=== PATIENT | male | born 1955 | race Caucasian/White ===

== ENCOUNTER 2020-12-30 15:13 | Emergency (ER) | payer MEDICARE, OTHER ==
[~2020-12-30] VITALS: Ht 172.7 cm; Wt 109.1 kg
[2020-12-30 17:02] VITALS: BP 112/70
[2020-12-30] MEDS ORDERED: RIVA10 PO (18:04)
[2020-12-30] MEDS ORDERED: APIX2.5T PO (18:04)
[2020-12-30] MEDS ORDERED: PANT40TA54 PO (18:04)
[2020-12-30] MEDS ORDERED: BUME2TAB5 PO (18:04)
[2020-12-30] MEDS ORDERED: METO-408 PO (18:04)
[2020-12-30] MEDS ORDERED: ASPI-1198 PO (18:04)
[2020-12-30] MEDS ORDERED: CARV3.1231 PO (18:04)
[2020-12-30] MEDS ORDERED: POTA-92 PO (18:04)
[2020-12-30] MEDS ORDERED: BUDE10.2 IH (18:04)
[2020-12-30] MEDS ORDERED: SPIR25 PO (18:04)
[2020-12-30] MEDS ORDERED: FOLI-130 PO (18:04)
[2020-12-30] MEDS ORDERED: MIDO10TA PO (18:04)
[2020-12-30] MEDS ORDERED: BUSP10TA3 PO (18:04)
[2020-12-30] MEDS ORDERED: CHOL125C2 PO (18:04)
[2020-12-30] MEDS ORDERED: ATOR-2 PO (18:04)
[2020-12-30] MEDS ORDERED: LOSA25TA21 PO (18:04)
[2020-12-30] MEDS ORDERED: ALPR0.5T8 PO (18:04)
[2020-12-30] MEDS ORDERED: METF-960 PO (18:04)
[2020-12-30] MEDS ORDERED: DULA0.75 SQ (18:04)
[2020-12-30] MEDS ORDERED: INSU100I15 SQ (18:04)
[2020-12-30] MEDS ORDERED: IPRA4AER IH (18:04)
== END 2020-12-30 19:19 | disposition home or self-care (01) ==
LOC: EMS 15:13
DX: K64.4 Residual hemorrhoidal skin tags (principal); I25.2 Old myocardial infarction
CPT/HCPCS: 99283; Z7502

== ENCOUNTER 2021-06-14 19:23 | Emergency (ER) | payer MEDICARE, OTHER ==
[~2021-06-14] VITALS: Ht 177.8 cm; Wt 96.8 kg
[~2021-06-14 19:23] MED LIST: ALPR0.5T8 PO; APIX2.5T PO; ASPI-1198 PO; ATOR-2 PO; BUDE10.2 IH; BUME2TAB5 PO; BUSP10TA3 PO; CARV3.1231 PO; CHOL500013 PO; DULA0.75 SQ; FOLI-130 PO; INSU100I15 SQ; IPRA4AER IH; LOSA25TA21 PO; METF-960 PO; METO-408 PO; MIDO10TA PO; PANT40TA54 PO; POTA-92 PO; RIVA10 PO; SPIR-37 PO
[2021-06-14] MEDS ORDERED: MORPHINE SULFATE 4 MG/ML SYRINGE IVP ONE (20:15)
[2021-06-14] MEDS ORDERED: LOSA25TA21 PO (20:23)
[2021-06-14] MEDS ORDERED: CARV6 PO (20:23)
[2021-06-14] MEDS ORDERED: PANT40TA54 PO (20:23)
[2021-06-14 21:09] LABS: BASOPHILS % (AUTO) 0.6 % (0.0-2.0); EOSINOPHILS % (AUTO) 1.3 % (1.0-6.0); HEMATOCRIT 51.1 % (41-53); HEMOGLOBIN 16.8 g/dL (13.5-17.5); LYMPHOCYTES # (AUTO) 0.6 K/uL (1.0-4.8); LYMPHOCYTES % (AUTO) 6.4 % (22.0-44.0); MEAN CORPUSCULAR HEMOGLOBIN 28.8 pg (26.0-34.0); MEAN CORPUSCULAR HGB CONC 32.9 G/dL (31.0-37.0); MEAN CORPUSCULAR VOLUME 88 fL (80-100); MONOCYTES % (AUTO) 10.5 % (2.0-9.0); NEUTROPHILS % (AUTO) 81.2 % (40.0-70.0); PLATELET COUNT (AUTO) 174 K/uL (150-450); RED BLOOD CELL COUNT(AUTO) 5.84 MIL/uL (4.50-5.90); RED CELL DISTRIBUTION WIDTH 18.7 % (11.5-14.5)
[2021-06-14 21:16] LABS: ANION GAP 10 mmol/L (8-16); CALCIUM, TOTAL 9.7 mg/dL (8.8-10.5); CARBON DIOXIDE 22 mmol/L (22-29); CHLORIDE 106 mmol/L (98-107); CREATININE 1.07 mg/dL (0.60-1.30); GLOMERULAR FILTR. RATE CALC > 60 mL/min (>60); GLUCOSE,RANDOM 131 mg/dL (70-110); POTASSIUM 4.2 mmol/L (3.5-5.1); SODIUM SERUM 138 mmol/L (136-145); UREA NITROGEN, BLOOD 21 mg/dL (7-18)
[2021-06-14 21:22] LABS: ALANINE AMINOTRANSFERASE 27 U/L (12-78); ALKALINE PHOSPHATASE 106 U/L (46-116); ASPARTATE AMINOTRANSFERASE 21 U/L (15-37); BILIRUBIN,TOTAL 0.6 mg/dL (0.1-1.0); LIPASE 129 U/L (73-393); TOTAL PROTEIN, SERUM 8.3 g/dL (6.4-8.2)
[2021-06-14] MEDS: MORPHINE SULFATE 4 MG/ML SYRINGE IVP PRN (22:12)
[2021-06-14] MEDS ORDERED: NICOTINE 7 MG/24 HOUR PATCH TD ONE (22:45)
[2021-06-14 22:52] LABS: COVID AG,FIA SOURCE NASOPHARYNGEAL
[2021-06-15] MEDS: MORPHINE SULFATE 4 MG/ML SYRINGE IVP PRN ×2 (00:28→01:58)
[2021-06-15 02:00] VITALS: BP 124/83
== END 2021-06-15 02:52 | disposition short-term general hospital (02) ==
LOC: EMS 19:25
DX: I71.4 Abdominal aortic aneurysm, without rupture (principal); J44.9 Chronic obstructive pulmonary disease, unspecified; E11.9 Type 2 diabetes mellitus without complications; I10 Essential (primary) hypertension; I25.2 Old myocardial infarction; Z20.822 Contact with and (suspected) exposure to COVID-19; Z86.73 Personal history of transient ischemic attack (TIA), and cerebral infarction without residual deficits; Z79.84 Long term (current) use of oral hypoglycemic drugs; Z79.82 Long term (current) use of aspirin
CPT/HCPCS: 36415; 74176; 80053; 83690; 85025; 87426; 93005; 96374; 96376; 99285; J2270 ×2